=== PATIENT | male | born 1965 | race Caucasian/White ===

== ENCOUNTER 2016-09-15 13:56 | Outpatient (CLI) | payer OTHER ==
[2015-01-15 19:07] VITALS: BP 142/74
[2016-09-15 14:58] LABS: eGFR (African) > 60; eGFR (Non-African) > 60
== END 2016-09-15 13:57 ==
LOC: LAB 13:56
PROVIDERS: ATTEND Family Medicine
DX: E03.9 Hypothyroidism, unspecified (principal); Z51.81 Encounter for therapeutic drug level monitoring
CPT/HCPCS: 36415; 80048; 84443

== ENCOUNTER 2016-11-28 10:16 | Outpatient (CLI) | payer OTHER ==
[2015-01-15 19:07] VITALS: BP 142/74
== END 2016-11-28 13:50 ==
LOC: LAB 10:16
PROVIDERS: ATTEND Family Medicine
DX: E03.9 Hypothyroidism, unspecified (principal)
CPT/HCPCS: 36415; 84443

== ENCOUNTER 2017-03-13 12:11 | Outpatient (CLI) | payer OTHER ==
[2015-01-15 19:07] VITALS: BP 142/74
== END 2017-03-13 12:12 ==
LOC: LAB 12:11
PROVIDERS: ATTEND Family Medicine
DX: E03.9 Hypothyroidism, unspecified (principal)
CPT/HCPCS: 36415; 84443

== ENCOUNTER 2017-06-29 09:00 | Outpatient (CLI) | payer OTHER ==
[2015-01-15 19:07] VITALS: BP 142/74
== END 2017-06-29 09:15 ==
LOC: LAB 09:00
PROVIDERS: ATTEND Family Medicine
DX: E03.9 Hypothyroidism, unspecified (principal)
CPT/HCPCS: 36415; 84443

== ENCOUNTER 2017-09-23 09:38 | Outpatient (CLI) | payer OTHER ==
[2015-01-15 19:07] VITALS: BP 142/74
--- NOTE | 2017-09-23 20:14 | Diagnostic Imaging Report ---
JOHN STATON~ [facility] [address] [address] ~ ~ ~ ~ Report Submission Date: Sep 23, 2017 10:56:13 AM CDT Patient ~ Study Name: DIVINE PRETTY ~ Date: Sep 23, 2017 10:30:54 AM CDT ~ Modality Type: DX Gender: M ~ Description: SHOULDER : 63 ~ Institution: [facility] Physician: JOHN STATON ~ ~ ~ Examination: Plain film right shoulder History: RT SHOULER, PAIN IN RT SHOULDER AND DECREASED RANGE OF MOTION X6 MONTHS , NO KNOWN INJURY (Hx) Comparison exams: None provided Findings: 2 views of the shoulder demonstrate normal cortical margins.~ No evidence for fracture or dislocation. Acromioclavicular joint degenerative spurring. No soft tissue abnormality Impression: Acromioclavicular joint degenerative spurring. No acute osseous process. ~ Electronically signed on Sep 23, 2017 10:56:13 AM CDT by: Bari HOUSTON
== END 2017-09-23 09:40 ==
LOC: LAB 09:38
PROVIDERS: ATTEND Family Medicine
DX: E03.9 Hypothyroidism, unspecified (principal); M25.511 Pain in right shoulder; E66.9 Obesity, unspecified
CPT/HCPCS: 36415; 73030; 84443

== ENCOUNTER 2018-01-11 12:18 | Outpatient (CLI) | payer OTHER ==
[2015-01-15 19:07] VITALS: BP 142/74
== END 2018-01-11 12:20 ==
LOC: LAB 12:18
PROVIDERS: ATTEND Family Medicine
DX: E03.9 Hypothyroidism, unspecified (principal)
CPT/HCPCS: 36415; 84443

== ENCOUNTER 2018-06-11 10:09 | Emergency (ER) | payer OTHER ==
--- NOTE | 2018-06-11 10:20 | ED Physician Documentation ---
General Adult - HISTORIAN Historian: patient - PAST HX Allergies/Adverse Reactions: Allergies Allergy/AdvReac Type Severity Reaction Status Date / Time No Known Drug Allergies Allergy Verified 06/11/18 10:34 - VITAL SIGNS Vital Signs: Vital Signs Temp Pulse Resp BP Pulse Ox 86 17 123/67 99 06/11/18 10:23 06/11/18 10:23 06/11/18 10:23 06/11/18 10:23 Discharge Referrals: Kane Mace MD [Primary Care Provider] - 2 Days Comments: left prior to my assessmentDG Disposition: 07 AGAINST MEDICAL ADVICE
[2018-06-11 10:33] VITALS: BP 123/67
== END 2018-06-11 10:23 | disposition left against medical advice (07) ==
LOC: ED 10:09
DX: Z53.21 Procedure and treatment not carried out due to patient leaving prior to being seen by health care provider (principal)
CPT/HCPCS: 99281